=== PATIENT | male | born 1970 | race Caucasian/White ===

== ENCOUNTER → 2017-11-22 | Outpatient (CLI) | payer OTHER ==
--- NOTE | 2017-11-23 07:38 | RAD ---
HISTORY: Injury, fall, right ankle pain Study: Right ankle AP, lateral, mortise Comparison: None Findings: There is lateral soft tissue swelling present. There is no definite evidence for fracture, lytic, or blastic lesion. No joint erosion or joint effusion is identified. IMPRESSION: Lateral soft tissue swelling, no fracture identified Reported By:
== END ==
LOC: RAD 16:38
PROVIDERS: ATTEND Obstetrics & Gynecology Obstetrics
DX: M25.579 Pain in unspecified ankle and joints of unspecified foot (principal); R60.0 Localized edema
CPT/HCPCS: 73610